=== PATIENT | male | born 1990 | race Caucasian/White ===

== ENCOUNTER 2016-12-29 18:28 | Emergency (ER) | payer SELFPAY ==
[2016-12-29 18:43] VITALS: BP 139/88; PULSE 110; RESP 20; TEMP 98.2; O2SAT 97
--- NOTE | 2016-12-29 19:32 | C.PDOC ---
History Of Present Illness 26 y.o male complains of left foot and ankle pain after twisting injury 3 days ago. He states he applied ice but the swelling persists and has pain with walking. Denies any other injury, numbness, weakness, calf pain. Time Seen by Provider: 12/29/16 19:09 Chief Complaint (Nursing): Lower Extremity Problem/Injury History Per: Patient History/Exam Limitations: no limitations Onset/Duration Of Symptoms: Days (4) Severity: Mild Past Medical History Reviewed: Historical Data, Nursing Documentation, Vital Signs Vital Signs: Last Vital Signs Temp 98.2 F 12/29/16 18:40 Pulse 110 H 12/29/16 18:40 Resp 20 12/29/16 18:40 BP 139/88 12/29/16 18:40 Pulse Ox 97 12/29/16 19:41 - Medical History PMH: No Chronic Diseases Family History: States: Unknown Family Hx - Social History Hx Alcohol Use: Yes Hx Substance Use: No - Immunization History Hx Tetanus Toxoid Vaccination: No Hx Influenza Vaccination: No Hx Pneumococcal Vaccination: No Review Of Systems Constitutional: Negative for: Fever Cardiovascular: Negative for: Chest Pain Respiratory: Negative for: Cough Musculoskeletal: Positive for: Foot Pain. Negative for: Neck Pain, Leg Pain Skin: Positive for: Bruising Neurological: Negative for: Headache Physical Exam - Physical Exam Appears: Non-toxic, No Acute Distress Skin: Warm, Dry, Ecchymosis (left lateral dorsal aspect of foot) Head: Atraumatic, Normacephalic Eye(s): bilateral: Normal Inspection Neck: Normal ROM Extremity: Other (Left lower extremity: Tenderness, swelling and mild ecchymosis to the lateral dorsal aspect of foot along 5th metatarsal. mild swelling and tenderness below lateral malleolus. ) Pulses: Left Dorsalis Pedis: Normal Neurological/Psych: Oriented x3, Normal Speech ED Course And Treatment O2 Sat by Pulse Oximetry: 97 Medical Decision Making Medical Decision Making: Impression: left foot injury Plan: XRay foot and ankle, Motrin XRay reviewed by me showing soft tissue swelling, no fracture or dislocation danyell bandage was applied by CP Patient advise to follow up with ortho or podiatry Disposition Counseled Patient/Family Regarding: Diagnosis, Need For Followup, Rx Given - Disposition Referrals: Podiatry Clinic [Outside] Disposition: HOME/ ROUTINE Disposition Time: 19:54 Condition: STABLE Additional Instructions: Your xray was normal, no fracture. Please apply ice to area 15 minutes three times a day. Take Motrin as needed for pain every 6 hours, with food to not upset stomach. Follow up with orthopedic if pain persists over one week. Prescriptions: Ibuprofen [Motrin] 600 mg PO Q8 #30 tab Instructions: Foot Sprain (ED) - POA Present On Arrival: None - Clinical Impression Clinical Impression: Foot sprain - PA / DIRECTOR EHS / Resident Statement MD/DO has reviewed & agrees with the documentation as recorded.
--- NOTE | 2016-12-30 10:00 | RAD ---
PROCEDURE: Left Foot Radiographs. HISTORY: r/o fracture COMPARISON: None. FINDINGS: BONES: Normal. No fracture. JOINTS: Normal. SOFT TISSUES: Normal. OTHER FINDINGS: None. IMPRESSION: No acute findings related to/accounting for the clinical presentation. [facility]
--- NOTE | 2016-12-30 10:01 | RAD ---
PROCEDURE: Left Ankle Radiographs. HISTORY: r/o fracture COMPARISON: None FINDINGS: BONES: Normal. No fracture. JOINTS: Normal. No osteoarthritis. Ankle mortise maintained. Talar dome intact SOFT TISSUES: Normal. OTHER FINDINGS: None. IMPRESSION: No acute findings related to/accounting for the clinical presentation. Concordant results with the preliminary interpretation rendered by the emergency department physician procedure.
== END 2016-12-29 20:00 | disposition home or self-care (01) ==
LOC: C.ER 18:28
DX: S93.602A Unspecified sprain of left foot, initial encounter (principal); X50.9XXA Other and unspecified overexertion or strenuous movements or postures, initial encounter

== ENCOUNTER 2017-12-28 20:47 | Emergency (ER) | payer MEDICAID ==
--- NOTE | 2017-12-28 22:56 | C.PDOC ---
History Of Present Illness 27 year old male presents to the emergency department with complaints of alcohol dependency and is currently requesting detox. Patient states he drinks four beers a day along with shots, reporting that his last drink was at 3PM this afternoon. Patient reports shaking when he doesn't drink, and reports having seizures in the past. Patient states that he has no PMHx and that he's never been for alcohol detox. He denies drug use, abdominal pain, or vomiting. Chief Complaint (Nursing): Substance Abuse History Per: Patient History/Exam Limitations: no limitations Onset/Duration Of Symptoms: Days (1) Current Symptoms Are (Timing): Still Present Modifying Factor(s): Alcohol Associated Symptoms: Other (shaking) Past Medical History Reviewed: Historical Data, Nursing Documentation, Vital Signs Vital Signs: Last Vital Signs Temp 98.0 F 12/28/17 23:08 Pulse 100 H 12/28/17 23:08 Resp 18 12/28/17 23:08 BP 138/93 H 12/28/17 23:08 Pulse Ox 99 12/29/17 02:34 - Medical History PMH: Seizures Surgical History: No Surg Hx Family History: States: No Known Family Hx - Social History Hx Alcohol Use: Yes (4 beers a day with shots) Hx Substance Use: No - Immunization History Hx Tetanus Toxoid Vaccination: No Hx Influenza Vaccination: No Hx Pneumococcal Vaccination: No Review Of Systems Constitutional: Negative for: Fever Gastrointestinal: Negative for: Nausea, Vomiting, Abdominal Pain, Diarrhea Neurological: Positive for: Altered Mental Status (under the influence of alcohol) Physical Exam - Physical Exam Appears: Non-toxic, No Acute Distress Skin: No Normal Color (face flushed) Head: Atraumatic, Normacephalic Eye(s): bilateral: Other (sclera are anicteric) Nose: Normal Oral Mucosa: Moist, Other (alcohol on breath) Throat: Normal, No Erythema, No Exudate Neck: Supple Chest: Symmetrical Cardiovascular: Rhythm Regular Respiratory: Normal Breath Sounds (CTA bilaterally), No Rales, No Rhonchi, No Wheezing Gastrointestinal/Abdominal: Soft, No Tenderness Pulses: Left Dorsalis Pedis: Normal, Right Dorsalis Pedis: Normal Neurological/Psych: Oriented x3, No Normal Speech (speech slurred), Normal Cognition, Other (no focal deficits) ED Course And Treatment O2 Sat by Pulse Oximetry: 99 (RA) Pulse Ox Interpretation: Normal - Radiology Nexus Criteria: . Focal Neuro Deficit Medical Decision Making Medical Decision Making: Impression: Alcohol Dependency Disposition - Disposition Referrals: Alcoholics Anonymous [Outside] [facility] [Outside] Disposition: HOME/ ROUTINE Disposition Time: 05:47 Condition: GOOD Additional Instructions: pt provided with list of outside opportunities for detox Instructions: Alcohol Abuse and Alcoholism (DC) Forms: [employer] (Pashto) Print Language: UPPER SORBIAN - Clinical Impression Clinical Impression: Alcohol abuse - Scribe Statement The provider has reviewed the documentation as recorded by the Scribe (Stevo Schneider) Provider Attestation: All medical record entries made by the Scribe were at my direction and personally dictated by me. I have reviewed the chart and agree that the record accurately reflects my personal performance of the history, physical exam, medical decision making, and the department course for this patient. I have also personally directed, reviewed, and agree with the discharge instructions and disposition.
[2017-12-28 23:14] VITALS: BP 138/93; PULSE 100; RESP 18; TEMP 98
[2017-12-29 02:30] VITALS: O2SAT 99
== END 2017-12-28 23:08 | disposition home or self-care (01) ==
LOC: C.ER 20:47
DX: F10.20 Alcohol dependence, uncomplicated (principal); Y90.9 Presence of alcohol in blood, level not specified